=== PATIENT | female | born 1955 | race African-American/Black ===

== ENCOUNTER 2018-09-11 19:04 | Emergency (ER) | payer OTHER ==
[~2018-09-11] VITALS: Ht 170.2 cm; Wt 89.2 kg
[2018-09-11 19:35] VITALS: Ht 170.2 cm; Wt 89.2 kg
[2018-09-11] MEDS ORDERED: ERYTHROMYCIN 1 GM OPH OINT BOTH EYES ONE (21:00)
[2018-09-11] MEDS ORDERED: ERYT1OIN6 BOTH EYES (21:47)
[2018-09-11 23:25] VITALS: BP 144/84; PULSE 85; RESP 18
--- NOTE | 2018-09-12 13:18 | ERD ---
ER Documentation Chief Complaint Chief Complaint bilateral eye redness/discharge/pain X 3 days HPI History of Present Illness: 63-year-old female who reports a past medical history of hypertension, diabetes, glaucoma coming in today due to bilateral eye itching and purulent discharge and matting is been present for 3 days. Denies any other associated symptoms. At home pharmacological/nonpharmacological treatment for symptoms: Denies Denies social concerns; Denies recent foreign travel ROS All systems reviewed and are negative except as per history of present illness. Medications Home Meds Active Scripts Erythromycin Base (Erythromycin) 1 Gm Oint...g., 1 APPLIC BOTH EYES QID for EYE INFECTION for 7 Days Prov:DANG RICARDO V REGISTERED RADIOLOGIC TECHNOLOGIST 09/11/18 Allergies Allergies: Coded Allergies: acetaminophen (Verified Allergy, Unknown, 09/11/18) hydrocodone (Verified Allergy, Unknown, 09/11/18) PMhx/Soc History of Surgery: Yes (gall bladder removed) Hx Cardiac Disorders: Yes (HTN) Hx Alcohol Use: Yes (socially) Hx Substance Use: No Hx Tobacco Use: Yes Smoking Status: Current every day smoker FmHx Family History: No diabetes, No coronary disease Physical Exam Vitals Vital Signs Date Temp Pulse Resp B/P (MAP) Pulse Ox O2 O2 Flow FiO2 Time Delivery Rate 09/11/18 98.4 85 18 144/84 95 Room Air 23:25 (104) 09/11/18 98.6 98 18 158/68 100 19:35 (98) Physical Exam Const: No acute distress, afebrile Head: Atraumatic Eyes: Reddened conjunctiva, yellow purulent discharge noted to bilateral eyes ENT: Normal External Ears, Nose and Mouth. Neck: Full range of motion. No meningismus. Resp: Clear to auscultation bilaterally Cardio: Regular rate and rhythm, no murmurs Abd: Soft, non tender, non distended. No guarding, no masses, no rigidity Skin: No petechiae or rashes Back: No midline or flank tenderness Ext: No cyanosis, or edema Neur: Awake and alert x3, speaking in clear sentences, no focal deficits or facial asymmetry Psych: Normal Mood and Affect Results 24 hrs Current Medications Medications Dose Sig/Fernandez Start Time Status Last (Trade) Ordered Route PRN Stop Time Admin Dose Reason Admin 1 applic ONCE ONCE 09/11/18 DC 09/11/18 Erythromycin BOTH EYES 21:00 21:18 09/11/18 21:01 (Erythromycin Oph Oint) Procedures/MDM ED COURSE: ED course includes a thorough examination and history. The patient was stable throughout ED course. I kept the patient and/or family informed of laboratory and diagnostic imaging results throughout the ED course. MEDICATIONS GIVEN IN ER: Erythromycin DIAGNOSTIC IMAGING: None PROCEDURES: None. MEDICAL DECISION MAKING: Low suspicion for life-threatening medical emergency. Low suspicion for closed angle glaucoma or other acute emergent ophthalmologic findings. Otherwise healthy patient presenting with constellation of symptoms likely representing uncomplicated bacterial conjunctivitis as characterized by history, physical exam findings. Patient reassessment @ 2145: Patient hemodynamically stable. No respiratory distress, otherwise relatively well appearing and nontoxic. Disposition given. Patient educated on diagnoses, prescriptions, follow-up care, return precautions. Strict return precautions given for worsening condition; questions answered discharge. Patient verbalizes understanding of discharge instructions. PRESCRIPTIONS FOR HOME: Erythromycin DISPOSITION: DISCHARGE At this time, patient is stable for discharge and outpatient management. I have instructed the patient to follow-up with his/her primary care physician in 1-2 days. I have discussed with the patient the possibility of needing to see a specialist for further workup and imaging studies if symptoms persist. I have instructed the patient to promptly return to the ER for any new or worsening symptoms including increased pain, fever, nausea, vomiting, weakness or LOC. The patient and/or family expressed understanding of and agreement with this plan. All questions were answered. Home care instructions were provided. DISCLAIMER: Inadvertent spelling and grammatical errors are likely due to EHR/dictation software use and do not reflect on the overall quality of patient care. Also, please note that the electronic time recorded on this note does not necessarily reflect the actual time of the patient encounter. Departure Diagnosis: Primary Impression: Bilateral conjunctivitis Conjunctivitis type: acute Acute conjunctivitis type: bacterial Qualified Codes: H10.33 - Unspecified acute conjunctivitis, bilateral Condition: Stable Patient Instructions: Conjunctivitis, Bacterial Referrals: [facility] YOU HAVE RECEIVED A MEDICAL SCREENING EXAM AND THE RESULTS INDICATE THAT YOU DO NOT HAVE A CONDITION THAT REQUIRES URGENT TREATMENT IN THE EMERGENCY DEPARTMENT. FURTHER EVALUATION AND TREATMENT OF YOUR CONDITION CAN WAIT UNTIL YOU ARE SEEN IN YOUR DOCTORS OFFICE WITHIN THE NEXT 1-2 DAYS. IT IS YOUR RESPONSIBILITY TO MAKE AN APPOINTMENT FOR FOLOW-UP CARE. IF YOU HAVE A PRIMARY DOCTOR --you should call your primary doctor and schedule an appointment IF YOU DO NOT HAVE A PRIMARY DOCTOR YOU CAN CALL OUR PHYSICIAN REFERRAL HOTLINE AT IF YOU CAN NOT AFFORD TO SEE A PHYSICIAN YOU CAN CHOSE FROM THE FOLLOWING [facility] [address] [facility] [address] [facility] [address] [facility] [address] [facility] [address] [facility] [facility] [address] [facility] [facility] YOU HAVE RECEIVED A MEDICAL SCREENING EXAM AND THE RESULTS INDICATE THAT YOU DO NOT HAVE A CONDITION THAT REQUIRES URGENT TREATMENT IN THE EMERGENCY DEPARTMENT. FURTHER EVALUATION AND TREATMENT OF YOUR CONDITION CAN WAIT UNTIL YOU ARE SEEN IN YOUR DOCTORS OFFICE WITHIN THE NEXT 1-2 DAYS. IT IS YOUR RESPONSIBILITY TO MAKE AN APPOINTMENT FOR FOLOW-UP CARE. IF YOU HAVE A PRIMARY DOCTOR --you should call your primary doctor and schedule and appointment IF YOU DO NOT HAVE A PRIMARY DOCTOR YOU CAN CALL OUR PHYSICIAN REFERRAL HOTLINE AT . IF YOU CAN NOT AFFORD TO SEE A PHYSICIAN YOU CAN CHOSE FROM THE FOLLOWING [facility] INSTITUTIONS: [facility] [address] [place] [address] [facility] [address] [place] [address] [facility] [address] [place] [address] Additional Instructions: Thank you very much for allowing us to participate in your care. Your health and safety is our top priority at [facility]. It is important to read all discharge instructions and education provided in your discharge packet. *The eye infection that you have is contagious. Ensure to have proper hand allergy to prevent passing of infection to others.* Call your primary care doctor TOMORROW for an appointment during the next 2-4 days and bring all the information and medications prescribed. Have prescriptions filled and follow precisely the directions on the label. -Erythromycin eye ointment an antibiotic; take this medication every day as listed on your prescription. You must complete the entire course of treatment that is listed on your prescription this is very important because it takes a certain number of days to kill the bacteria that is causing the infection. If the symptoms get worse and your provider is unavailable, return to the Emergency Department immediately. DANG RICARDO NP Sep 12, 2018 13:18
== END 2018-09-11 23:00 | disposition home or self-care (01) ==
LOC: FTE 19:04
DX: H10.33 Unspecified acute conjunctivitis, bilateral (principal); I10 Essential (primary) hypertension; E11.9 Type 2 diabetes mellitus without complications; F17.210 Nicotine dependence, cigarettes, uncomplicated
CPT/HCPCS: 99283